=== PATIENT | female | born 1960 | race Caucasian/White ===

== ENCOUNTER 2025-07-17 16:32 | Emergency (ER) | payer MEDICARE, BC, SELFPAY ==
[2025-07-17 16:45] VITALS: BP 104/52; PULSE 78; RESP 16; TEMP 36.5; O2SAT 99
--- NOTE | 2025-07-17 16:52 | CRLHL7_ITS ---
For Patients: As a result of the Century Cures Act, medical imaging exams and procedure reports are released immediately into your electronic medical record. You may view this report before your referring provider. If you have questions, please contact your health care provider. Indication: Injury and pain. Technique: Right wrist 3 view. Comparison: None. Findings: Bones: Acute, transverse, comminuted extra-articular fracture of the distal radius with slight apex volar angulation and displacement. Mildly displaced acute ulnar styloid fracture. Slight ulnar positive variance. Soft tissues: Mild soft tissue swelling about the wrist. Impression: 1. Acute, transverse, comminuted extra-articular fracture of the distal radius with slight apex volar angulation and displacement. 2. Mildly displaced acute ulnar styloid fracture. Dictated by Lucie Bennett MD @ 07/17/2025 5:47:54 PM (Electronically Signed)
--- NOTE | 2025-07-17 16:53 | ED_ITS ---
HPI - Extremity Injury (Upper) General Chief Complaint: Extremity Pain/Injury, Upper Stated Complaint: Right Wrist injury Time Seen by Provider: 07/17/25 16:48 History of Present Illness HPI narrative: This 64-year-old female comes in for evaluation of an injury to her right wrist. She lives in [facility] and has history of dementia. About an hour prior to arrival she fell injuring her right wrist. She does not report any other injury. She did not hit her head or have loss of consciousness. Related Data Allergies Allergy/AdvReac Type Severity Reaction Status Date / Time No Known Drug Allergies Allergy Verified 07/17/25 16:45 Review of Systems Status of ROS: Reports: 10 or more systems reviewed and unremarkable except as noted in History and below Narrative: Constitutional: No fevers, no weight gain or loss. Eyes: No discharge. No vision changes. HENT: No congestion, no sore throat, no ear pain. Cardiovascular: No chest pain, no palpitations. Respiratory: No shortness of breath, no wheezes, no cough. Gastrointestinal: No abdominal pain, no vomiting, no diarrhea. Genitourinary: No dysuria, no hematuria. Musculoskeletal: Right wrist injury as described above. Skin: No rashes, no pruritis. Neurological: No dizziness, weakness, sensory change, speech change. Endo/Heme/Allergies: No bruising or bleeding. No polydipsia. Pysch: no suicidality, no anxiety, no insomnia. All other systems reviewed and are negative. Exam Narrative: Exam Narrative: Constitutional: Well-developed, well-nourished, no acute distress. HEENT: Normocephalic, atraumatic. Neck: Normal range of motion. Nontender. Supple. Heart: Intact distal pulses. Lungs: No chest discomfort. No wheezes, rhonchi, or rales. Abdomen: Nontender. Back: Normal range of motion. Extremities: Right wrist pain with mild swelling and some deformity. Skin: Intact. No rash. Warm. No erythema or pallor. Neurologic: No altered sensation. No weakness. Alert and oriented. Psychiatric: No suicidality. No anxiety or depression. No insomnia. Nursing notes and vitals signs are reviewed. Const: Vital Signs, click to edit/add: Vital Signs - 24 hr 07/17/25 16:45 Temperature 97.7 F Pulse Rate [Pulse Oximeter] 78 Respiratory Rate 16 Blood Pressure [Le ft Upper Arm] 104/52 L Pulse Oximetry 99 Oxygen Delivery Me thod Room Air Course Vital Signs Vital signs: Initial Vital Signs Temperature 97.7 F 07/17/25 16:45 Temperature Source Temporal Artery Scan 07/17/25 16:45 Pulse Rate 78 07/17/25 16:45 Respiratory Rate 16 07/17/25 16:45 Blood Pressure 104/52 L 07/17/25 16:45 Blood Pressure Mean 69 L 07/17/25 16:45 Pulse Oximetry 99 07/17/25 16:45 Oxygen Delivery Method Room Air 07/17/25 16:45 Vital Signs Temperature 97.7 F 07/17/25 16:45 Pulse Rate 78 07/17/25 16:45 Respiratory Rate 16 07/17/25 16:45 Blood Pressure 104/52 L 07/17/25 16:45 Pulse Oximetry 99 07/17/25 16:45 Oxygen Delivery Method Room Air 07/17/25 16:45 Temperature 97.7 F 07/17/25 16:45 Pulse Rate 78 07/17/25 16:45 Respiratory Rate 16 07/17/25 16:45 Blood Pressure 104/52 L 07/17/25 16:45 Pulse Oximetry 99 07/17/25 16:45 Oxygen Delivery Method Room Air 07/17/25 16:45 MDM - Extremity Injury (Upper) MDM Narrative Medical decision making narrative: This patient has an injury to her right wrist as described above. X-ray images do show a fracture with minimal displacement. I did use 1% lidocaine to of administer a hematoma block which brought sufficient relief to her pain as a Ortho Glass splint was placed in sugar-tong orientation. I did put some p ressure to improve the alignment. Patient is instructed to wear the splint and sling and follow-up with orthopedic clinic for further management. Imaging Data XR R Wrist: Radiologist's impression: 1. Acute, transverse, comminuted extra-articular fracture of the distal radius with slight apex volar angulation and displacement. 2. Mildly displaced acute ulnar styloid fracture. Discharge Plan Discharge Clinical Impression: Fracture of wrist Patient Disposition: Home w/ Parent or Adult Condition: Improved Additional Instructions: Wear splint and sling. Use [id number] medicines as needed and directed. Follow-up with orthopedic clinic for ongoing management. Call [phone] for appointment. Follow Up/Referrals: Nguyen Man MD [Primary Care Provider, Family Practice] Stand Alone Forms: [employer] Access Info Instructions
--- OUTSIDE RECORDS SUMMARY | 2025-07-17 17:07 | XMS_ITS | Clinical Summary ---
Author Organization [facility] Address [address] [place] [id number] Care Team Providers Care Senior Reservations Agent Name Role Phone Nguyen Man MD Primary Care Provide r Allergies Active Allergy Reactions Criticality Noted Date Comments Sulfa (Sulfonamide Antibiotics) 07/31 Medications citalopram 10 mg tabletIndication s:Adjustment disorder with depressed mood Take 1 Tablet (10 mg) by mouth once daily in the morning. 90 Tablet 3 02/17/2025 Active lamoTRIgine (LaMICtal) 100 mg tabletIndication s:Seizure disorder (HC) Take 1 Tablet (100 mg) by mouth once daily. 05/06/2025 Active Active Problems Problem Noted Date Diagnosed Date Dementia in Alzheimer's disease with early onset 11/14/2021 Osteoporosis 08/06/2014 Wrist fracture, right 12/14/2013 Family history of malignant neoplasm of breast 0 10/07/2012 Atypical mole 09/27/2011 Seizure disorder 08/22/2010 Resolved Problems Problem Noted Date Diagnosed Date Resolved Date Adhesive capsulitis of shoulder 04/24/2010 10/07/2012 Screen for colon cancer 10/25/200904/2013 Overview (10/25/2009): Colonoscopy 09/2009 normal repeat in 10 years Other ill-defined conditions(799.89) 07/29/2007 08/22/2010 Overview (07/29/2007): Possible Absence seizures Immunizations Immunization Administration Dates Next Due AMB Influenza, IIV4 PF (=>6 mos Flulaval,Fluzone Fluarix)(Flu Clinic Only) 09/14/2014 COVID-19 vaccine (Moderna 100mcg/0.5mL) PF, MDV 07/28/2021,12/07/2020,11/09/2020 COVID-19 vaccine (Moderna 50mcg/0.5mL) 12YO+ BIVALENT PF, MDV 07/18/2022 DT (Age < 7 years) 07/29/1996 DTaP 07/29/2007 HepA-HepB (Twinrix) 08/12/2003,01/18/2003,2002 Influenza, High-dose Inactivated 06/18/2024 Influenza, IIV3 (Age >=3 years) 07/20/20 21,09/01/2013,10/20/2012,2007,08/30/2007,08/12/2003,07/26/1998,1 ,08/08/1996 Influenza,CCIIV4 PRESERV FREE 07/17/2023, 022,07/12/2020 MMR 07/29/1996 Pneumococcal Conj 20-valent (Prevnar 20) 11/26/2024 Tdap 07/29/2007 Zoster (Shingrix-RZV, recombinant) 03/30/2019, Family History Medical History Relation Name Comments Other Father [place] Lewy Body Syndr ome Good Health Mother Elenanor Dementia Hyperlipidemia Mother Elenanor Cancer-breast Other 1st cousin Cancer-breast Sister 4 Other Sister 4 osteopenia Cancer-breast Sister 5 pre-cancerous Hyperlipidemia Sister 5 Cancer-breast Sister 6 age 59, lobula r Stage 3 Cancer-ovarian No Family History Relation Name Status Comments Father Rock Alive Maternal Grandfather Maternal Grandmother Mother Elenanor Alive Other Paternal Grandfather Paternal Grandmother Sister 1 Lucero Alive Sister 2 Kiya Alive Sister 3 Christiana Alive Sister 4 Sister 5 Sister 6 Son 1 Paco Alive Son 2 Abilio Alive Social History Tobacco Use Types Packs/Day Years Used Date Smoking Tobacco: Never Smokeless Tobacco: Never Tobacco Cessation:Counseling Given: Yes Alcohol Use Standard Drinks/Week Comments Yes 4 (1 standard drink = 0.6 oz pur e alcohol) PHQ-2 Answer Date Recorded PHQ-2 TOTAL SCORE 0 11/26/2024 Social Connections Answer Date Recorded Do you often feel lonely or isolated from those around you? 0 11/26/2024 Financial Resource Strain Answer Date R ecorded Difficulty of Paying Living Expenses 3 11/26/2024 Difficulty of Paying Living Expenses Not on file 11/26/2024 Food Insecurity Answer Date Recorded Do you worry your food will run out before you are able to buy more? 1 11/26/2024 Transportation Needs Answer Date Record ed Does lack of transportation keep you from medica l appointments? 1 11/26/2024 Does lack of transportation keep you from work, meetings or getting things that you need? 1 11/26/2024 Housing Stability Answer Date Recorded What is your housing situation today? 1 11/26/2024 Utilities Answer Date Recorded Do you have trouble paying f or utilities (for example, heat, electricity, water, phone)? 1 11/26/2024 Comments No Sex and Gender Information Value Date Recorded Sex Assigned at Not on file Legal Sex Female 5:26 AM GRINDER SET UP OPERATOR Gender Identity Not on file Sexual Orientation Not on file Occupation Industry Job Start Date Job End Date Not on file Not on file Not on file Not on file Obstetrics History Para Term AB IAB SAB Ectopic Multiple Livin g Live Births 2 2 2 2 Date Outcome GA Total Labor Labor/2nd/3rd Weight Sex Type Anes PTL Angela A1 A5 Name Clin Term Term Last Filed Vital Signs Vital Sign Reading Time Taken Comments Blood Pressure 114/76 01/20/2025 2:21 PM CDT tow er Pulse 76 01/20/2025 2:21 PM CDT Temperature 36.1 C (96.9 F) 01/15/2025 1:06 PM CDT Respiratory Rate 16 12/31/2016 11:05 AM CDT Oxygen Saturation 99% 01/20/2025 2:21 PM CDT Inhaled Oxygen Concentration - - Weight 53.1 kg (117 lb) 01/20/2025 2:21 PM CDT Height 161.3 cm (5' 3.5) 11/26/2024 3:06 PM GRINDER SET UP OPERATOR Body Mass Index 20.4 11/26/2024 3:06 PM GRINDER SET UP OPERATOR Plan of Treatment Health Maintenance Due Date Last Done Comments Hepatitis C screening for ag e 18-79 1976 Tetanus booster 07/29/2017 07/29/2007 Lipids for age 45-75 12/31/2023 12/30/2018, 10/18/2016, 03/05/2012, Additional history exists COVID-19 vaccine series ( season) 2025 06/18/2024, 07/17/2023, 07/18/2022, Additional history exists Influenza Vaccine (#1) 2025 , 07/17/2023, 07/18/2022, Additional history exists BMI (ht and wt on same day) for age 18+ 11/26/2025 11/26/2024, 11/14/2021, 01/20/2020, Additional history exists Medicare Wellness for age 65+ 11/27/2025 11/26/2024 Depression screening for age 12+ 12/24/2025 12/24/2024, 11/27/2024, 11/26/2024, Additional history exists Mammogram for age 45-75 12/24/2025 12/25/19 25, 11/29/2021, 08/10/2019, Additional history exists Fecal testing sDNA-FIT (Center Line guard) for age 45-75 12/20/2027 12/19/2024 RSV vaccine for adults or (1 - 1-dose 75+ series) 2033 Hepatitis B series for 19+ Completed 08/12, 01/18/2003, 12/15/2002 Zoster (shingles) series for age 50+ Completed 03/30/2019, 01/08/2019 Pneumococcal series for age 50+ Completed DEXA/DXA scan for age 65+ Completed 2024, 11/29/2021, 01/01/2019, Additional history exists Procedures Procedure Name Priority Date/Time Associated Diagnosis Comments XR MAMMO BILAT SCREENING Routine 12/24/2024 1:50 PM CDT Screening due SDNA-FIT EXTERNAL (COLOGUARD) Routine 12/19/2024 8:50 AM CDT Screening for colon cancer XR DXA BONE DENSITY 2 SITES AXIAL Routine 11/27/2024 1:51 PM GRINDER SET UP OPERATOR Menopause LIPID PANEL Routine 12/30/2018 4:12 PM CDT Lipid screening from Last 3 Months or Most Recently Relevant to Health Maintenance Results * XR MAMMO BILAT SCREENING (12/24/2024 1:50 PM CDT) Anatomical Region Laterality Modality BREASTS, Breast Left, Breast Right Bilateral Mammography Impressions 12/28/2024 2:18 PM CDT There is no radiographic evidence for malignancy. Recommend annual mammograms. MAMMOGRAM ASSESSMENT: ACR 1 Negative PATIENTS: You will also receive a letter with your examination results in an easy to read format. If you have questions about your results, please contact your referring provider. Narrative 12/28/2024 2:18 PM CDT For Patients: As a result of the Century Cures Act, medical imaging exams and procedure reports are released immediately into your electronic medical record. You may view this report before your referring provider. If you have questions, please contact your health care provider. XR MAMMO BILAT SCREENING [[id number]] CLINICAL HISTORY: This is an asymptomatic 64 y.o. patient. INDICATION FOR EXAM: Mammogram Screening. TECHNIQUE: CC and MLO views were obtained. This study was evaluated with the assistance of Computer-Aided Detection. COMPARISON FILM: Yes 11/29/21 AT [facility] 08/10/19 [employer] FINDINGS: The breasts are heterogeneously dense, which may obscure small masses. There are no dominant masses, suspicious micro calcifications or areas of architectural distortion. us Nguyen Man MD MAMMO Final Result * SDNA-FIT EXTERNAL (COLOGUARD) (12/19/2024 8:50 AM CDT) NONINV COLON CA DNA+OCC BLD SCRN STL-IMP Negative Negative 12/24/2024 5:20 AM CDT [employer] (CLIA #:[id number]) Comment: NEGATIVE TEST RESULT. A negative Cologuard result indicates a low likelihood that a colorectal cancer (CRC) or advanced adenoma (adenomatous polyps with more advanced pre-malignant features) is present. The chance that a person with a negative Cologuard test has a colorectal cancer is less than 1 in 1500 (negative predictive value >99.9%) or has an advanced adenoma is less than 5.3% (negative predictive value 94.7%). These data are based on a prospective cross-sectional study of 10,000 individuals at average risk for colorectal cancer who were screened with both Cologuard and colonoscopy. (Marleni Musa al, N Engl J Med 2014;370(14):3969-9533) The normal value (reference range) for this assay is negative. COLOGUARD RE-SCREENING RECOMMENDATION: Periodic colorectal cancer screening is an important part of preventive healthcare for asymptomatic individuals at average risk for colorectal cancer. Following a negative Cologuard result, the [place] Cancer Society and U.S. Multi-Society Task Force screening guidelines recommend a Cologuard re-screening interval of 3 years. References: [employer] Society Guideline for Colorectal Cancer Screening: https://www.cancer.org/cancer/cxxyg-uoicel-rfrbwy/jupfbfvaa-mfsqhpscl-viqxvch/ac s-rec ommendations.html.; Jared DK, Pedro CR, Sunil GroveK, Colorectal Cancer Screening: Recommendations for Physicians and Patients from the U.S. Multi-Society Task Force on Colorectal Cancer Screening , Am J Gastroenterology 2017; 112:8863-9748. TEST DESCRIPTION: Composite algorithmic analysis of stool DNA-biomarkers with hemoglobin immunoassay. Quantitative values of individual biomarkers are not reportable and are not associated with individual biomarker result reference ranges. Cologuard is intended for colorectal cancer screening of adults of either sex, 45 years or older, who are at average-risk for colorectal cancer (CRC). Cologuard has been approved for use by the U.S. FDA. The performance of Cologuard was established in a cross sectional study of average-risk adults aged 50-84. Cologuard performance in patients ages 45 to 49 years was estimated by sub-group analysis of near-age groups. Colonoscopies performed for a positive result may find as the most clinically significant lesion: colorectal cancer [4.0%], advanced adenoma (including sessile serrated polyps greater than or equal to 1cm diameter) [20%] or non- advanced adenoma [31%]; or no colorectal neoplasia [45%]. These estimates are derived from a prospective cross-sectional screening study of 10,000 individuals at average risk for colorectal cancer who were screened with both Cologuard and colonoscopy. (Marleni Musa al, N Engl J Med 2014;370(14):2498-3073.) Cologuard may produce a false negative or false positive result (no colorectal cancer or precancerous polyp present at colonoscopy follow up). A negative Cologuard test result does not guarantee the absence of CRC or advanced adenoma (pre-cancer). The current Cologuard screening interval is every 3 years. ([employer] [employer] Society and U.S. Multi-Society Task Force). Cologuard performance data in a 10,000 patient pivotal study using colonoscopy as the reference method can be accessed at the following location: www.[employer]/results. Additional description of the Cologuard test process, warnings and precautions can be found at www.Auxmoneyrd.copygram. Stool specimen (specimen) (Rectum) 12/19/2024 8:50 AM CDT 2024 9:37 AM CDT us Nguyen Man MD URINE Final Result [employer] (CLIA #:[id number]) [address] [place] [address], * (ABNORMAL) XR DXA BONE DENSITY 2 SITES AXIAL (11/27/2024 1:51 PM GRINDER SET UP OPERATOR) Anatomical Region Laterality Modality Spine, HIPS, HIPL, HIPR Other Impressions 12/01/2024 1:51 PM GRINDER SET UP OPERATOR Osteoporosis. RECOMMENDATIONS: The National Osteoporosis Foundation recommends pharmacologic treatment for patients with T-scores of -2.5 or less, patients with prior history of fragility fractures, or patients with 10-year probability of greater than 3% at hips or greater than 20% of suffering major osteoporotic fractures. Recommend continued optimization of calcium and vitamin D intake through dietary means and/or supplementation and regular exercise. Consider pharmacologic therapy for osteoporosis. Follow-up bone density reading in 2 years if therapy initiated to assess therapeutic efficacy. Alanna Livingston PA-C [facility] 12/01/2024 Narrative 12/01/2024 1:51 PM GRINDER SET UP OPERATOR For Patients: Results are automatically released to your [facility] ([employer]) account once available, in compliance with federal regulations. This means that you may see your results before your provider has had a chance to review them. Please allow 2-3 business days for your provider to comment on the results. XR DXA Bone Mineral Density (BMD) EXAM LOCATION: [facility] [address] [facility] [address] PATIENT NAME: Nguyen Rubio DATE OF : 1960 EXAM DATE: 11/27/2024 REQUESTING PROVIDER: Nguyen Man MD GENDER AT : female HEIGHT: 5' 3.5 (11/26/2024) WEIGHT: 116 lb (11/26/2024) MENOPAUSAL STATUS: Postmenopausal RACE/ETHNICITY: White RISK FACTORS: Family History of Osteoporosis, Family History of Hip Fracture (parental), Weight < 127 lbs., and White Race CURRENT MEDICATION FOR BONE LOSS: NONE INDICATION: Menopause COMPARISON DATE(S): 2021 DXA scans are compared to prior studies for a patient only when the two (or more) studies were performed on the same scanner. It is not possible to compare data generated on one scanner to data from another because there are not standards in DXA equipment. This applies even if the two scanners are made by the same corsage maker. PROCEDURE: Dual-energy x-ray absorptiometry performed with routine technique. Reporting is completed in the form of a T-score. The T-score represents the standard deviation from peak bone mass based on young healthy adult. A Z-score is used for diagnosis in premenopausal women, and for men under the age of 50. FINDINGS: RESULT LUMBAR SPINE L1 - L4 BMD: 0.775 g/cm2 T-Score: - 3.4 Z-Score: - 1.4 Change from prior in 2021: Decrease 1.9%. RESULTS FEMUR Left femoral neck BMD: 0.690 g/cm2 T-Score: - 2.5 Z-Score: - 0.7 Change from prior in 2021: Increase 0.7%. Right femoral neck BMD: 0.684 g/cm2 T-Score: - 2.5 Z-Score: - 0.8 Change from prior in 2021: Decrease 3.1%. Left hip BMD: 0.643 g/cm2 T-Score: - 2.9 Z-Score: - 1.4 Change from prior in 2021: Decrease 1.4%. Right hip BMD: 0.663 g/cm2 T-Score: - 2.7 Z-Score: - 1.2 Change from prior in 2021: Decrease 3.4%. WHO criteria: Normal: T-score at or above -1 SD Osteopenia: T-score between -1.1 and -2.4 SD Osteoporosis: T-score at or below -2.5 SD us Nguyen Mna MD DEXA Final Result * (ABNORMAL) LIPID PANEL (12/30/2018 4:12 PM CDT) [facility] CHOLESTEROL,TOTAL 237(H) 100 - 199 mg/dL 12/30/2018 7:10 PM CDT [facility] [employer] TRIGLYCERIDES 72 <150 mg/dL 12/30/2018 7:10 PM CDT [facility] HDL CHOLESTEROL 91 >40 mg/dL 9 7:10 PM CDT [facility] NON-HDL CHOLESTEROL 146(H) <145 mg/dl 12/30/2018 7:10 PM CDT [facility] CHOL/HDL RATIO 2.60 <4.50 12/30/2018 7:10 PM CDT [facility] LDL CHOLESTEROL 132(H) <=130 mg/dL 12/30/2018 7:10 PM CDT [facility] PROVIDER ORDERED STATUS RANDOM 12/30/2018 7:10 PM CDT [facility] Blood BLOOD SPECIMEN / Unknown Venipuncture / Unknown 12/30/2018 4:12 PM CDT 12/30/2018 4:12 PM CDT us Nguyen Man MD CHEMISTRY Final Result [facility] [address] [place] [address], from Last 3 Months or Most Recently Relevant to Health Maintenance Insurance MEDICARE PB ONLY [employer] MEDICARE PART B HB ONLY Advance Directives Documents on File Type Date Recorded Patient Collar Stitcher Expl anation POLST 05/20/2025 Care Teams Senior Reservations Agent Relationship Specialty Start Date End Date Nguyen Man MD [address] [place] [address] PCP - General 03/22/06
--- NOTE | 2025-07-17 18:22 | ED.NURSE ---
Spoke to RA at facility then left message for on-call RN Yanira with update on patient and follow up care needed.
== END 2025-07-17 18:25 | disposition home or self-care (01) ==
PROVIDERS: Emergency Provider Emergency Medicine Emergency Medical Services; PCP Family Medicine
DX: S52.611A Displaced fracture of right ulna styloid process, initial encounter for closed fracture (principal); S52.551A Other extraarticular fracture of lower end of right radius, initial encounter for closed fracture; W19.XXXA Unspecified fall, initial encounter
CPT/HCPCS: 29125; 73110; 99283; 99284